=== PATIENT | female | born 1935 | race Caucasian/White ===

== ENCOUNTER → 2017-07-29 | Outpatient (CLI) | payer OTHER, MEDICARE, BC ==
--- NOTE | 2017-07-30 11:57 | MG ---
HISTORY: Annual surveillance, history of right breast carcinoma Comparison: July 29, 2016 FINDINGS: Bilateral CC and MLO projections of the right and left breast were obtained utilizing both full-field and push back techniques. Predominately fatty replaced fibroglandular tissue is seen to be present. Postoperative changes of the right breast are observed consistent with patient's history of right br east carcinoma. Otherwise, no significant architectural distortion, mass or clustered microcalcificat ions can be observed to suggest malignancy. No skin thickening or nipple retraction is appreciated. No pathological lymphadenopathy can be identified. Benign-appearing calcifications scattered throug hout the right and left breasts are observed. IMPRESSION: NO RADIOGRAPHIC EVIDENCE OF MALIGNANCY. ACR CATEGORY: 2 - benign findings. FOLLOW-UP EXAM 1 YEAR. Diagnostic CAD was utilized and reviewed. * 0 (ZERO) - ASSESSMENT INCOMPLETE; ADDITIONAL IMAGING IS NEEDED. * 1/1 (ONE) - NEGATIVE. * 2/II (TWO) - BENIGN FINDINGS. * 3/III (THREE) - PROBABLY BENIGN FINDING; SHORT INTERVAL FOLLOW-UP SUGGESTED. * 4/IV (FOUR) - SUSPICIOUS ABNORMALITY; BIOPSY SHOULD BE CONSIDERED. * 5/V - HIGHLY SUSPICIOUS OF MALIGNANCY; BIOPSY SHOULD BE PERFORMED. A NEGATIVE X-RAY REPORT SHOULD NOT DELAY BIOPSY IF A DOMINANT OR CLINICALLY SUSPICIOUS MASS IS PRESENT; 4 TO 8 PERCENT OF CANCERS ARE NOT IDENTIFIED BY X-RAY. A NEGA TIVE REPORT MAY REINFORCE THE CLINICAL IMPRESSION. ADENOSIS AND DENSE BREASTS MAY OBSCURE AN UNDERLY ING NEOPLASM. Reported By:
== END ==
LOC: RAD 09:21
PROVIDERS: ATTEND Specialist
DX: Z12.31 Encounter for screening mammogram for malignant neoplasm of breast (principal)
CPT/HCPCS: 77067

== ENCOUNTER → 2017-08-18 | Outpatient (CLI) | payer OTHER, MEDICARE, BC ==
--- NOTE | 2017-08-18 16:01 | MG ---
Examination: Unilateral right diagnostic mammogram and right breast ultrasound. Clinical history: Personal history of right breast carcinoma with right lumpectomy and subsequent rec onstructive right breast surgery with placement of a right breast prosthesis. The patient gives a his tory of a recent fall with tenderness and bruising to the right breast. Technique: Multiple digital images of the right breast were obtained. Targeted right breast ultrasoun d was also obtained evaluating the area of bruising from the 10 o'clock to 2 o'clock position. Comparison: 07/29/2017. Findings: The right breast is composed of scattered fibroglandular densities. There are stable postsurgical car nges from a right lumpectomy, with a stable partially calcified right breast prosthesis also noted. B enign-appearing calcifications are noted in the right breast. No suspicious mass, area of architectural distortion or suspicious cluster of microcalcifications is noted. Targeted right breast ultrasound evaluating the area of bruising in the superior portion of the right breast, reveals multiple small sub 5 mm circumscribed hypoechoic and anechoic masses seen at the 11 o'clock, 12 o'clock, 1 o'clock and 2 o'clock positions, likely representing small developing oil cyst s/fat necrosis or small complicated benign cysts. A followup right diagnostic mammogram and right carey ast ultrasound is recommended in 6 months to ensure stability of the findings. Impression: 1. Probably benign findings in the right breast, as described above. BI-RADS category 3/III (THREE) - PROBABLY BENIGN FINDING; SHORT INTERVAL FOLLOW-UP SUGGESTED. Recommend a followup right diagnostic mammogram and right breast ultrasound in 6 months to ensure sta bility of the findings in the right breast. Diagnostic CAD was utilized and reviewed. * 0 (ZERO) - ASSESSMENT INCOMPLETE; ADDITIONAL IMAGING IS NEEDED. * 0C - ASSESSMENT INCOMPLETE, NEEDS ADDITIONAL IMAGING EVALUATION AND/OR PRIOR MAMMOGRAMS FOR COMPARI SON. * 1/1 (ONE) - NEGATIVE. * 2/II (TWO) - BENIGN FINDINGS. * 3/III (THREE) - PROBABLY BENIGN FINDING; SHORT INTERVAL FOLLOW-UP SUGGESTED. * 4/IV (FOUR) - SUSPICIOUS ABNORMALITY; BIOPSY SHOULD BE CONSIDERED. * 5/V - HIGHLY SUSPICIOUS OF MALIGNANCY; BIOPSY SHOULD BE PERFORMED. * 6/ - KNOWN BIOPSY PROVEN MALIGNANCY-APPROPRIATE ACTION SHOULD BE TAKEN. A NEGATIVE X-RAY REPORT SHOULD NOT DELAY BIOPSY IF A DOMINANT OR CLINICALLY SUSPICIOUS MASS IS PRESENT; 4 TO 8 PERCENT OF CANCERS ARE NOT IDENTIFIED BY X-RAY. A NEGATIVE REPORT MAY REINFORCE THE CLINICAL IMPRESSION. ADENOSIS AND DENSE BREASTS MAY OBSCURE AN UNDERLYING NEOPLASM. Reported By:
== END | disposition home or self-care (01) ==
LOC: RAD 12:18
PROVIDERS: ATTEND Specialist
DX: N64.4 Mastodynia (principal); W19.XXXA Unspecified fall, initial encounter
CPT/HCPCS: 76642; 77065

== ENCOUNTER → 2018-02-09 | Outpatient (CLI) | payer OTHER, MEDICARE, BC ==
--- NOTE | 2018-02-12 10:27 | US ---
HISTORY: Six-month follow-up right breast nodules status post trauma with prior history of right carey ast carcinoma Right breast digital diagnostic mammography with CAD and right breast ultrasound. Comparison: July 2017 and June 2015 FINDINGS: Mammogram: CC and MLO projections of the right breast were obtained utilizing both full-field and pus h back techniques. Scattered fibroglandular tissue is seen to be present without suspicious interval change. No new or developing dominant architectural distortion, mass or clustered microcalcificatio ns can be observed to suggest malignancy. The patient has undergone previous lumpectomy with subglan dular silicone implant reconstruction with somewhat of an irregular contour and a calcified fibrous c apsule noted as well as adjacent hyperdense nodules which appear overall stable as compared to the mo st recent prior and which suggest the presence of fat necrosis/oil cyst formation as well as perhaps extracapsular rupture with silicone granuloma formation. No pathological lymphadenopathy can be keli ntified. Ultrasound: Multiple grayscale and color Doppler images of the superior right breast were obtained. S cattered from 11 to 2 o'clock 1-3 cm from the nipple, there are multiple rounded as well as horizonta lly oriented predominately anechoic cysts with posterior acoustical enhancement and no internal Doppl er flow the largest of which measures 6 mm located at 1 o'clock approximately 3 cm from the nipple an d which are most consistent with benign oil cysts. No suspicious cystic or solid nodules seen to jules ant biopsy at this time. IMPRESSION: Probably benign postsurgical and posttraumatic changes in the right breast with fat necr osis/oil cyst formation as well as possible extracapsular rupture with silicone granuloma formation a nd for which an additional six-month follow-up is recommended. The patient should undergo bilateral m ammographic imaging at that time. ACR CATEGORY 3 - probably benign finding; short interval follow-up suggested. Diagnostic CAD was utilized and reviewed. * 0 (ZERO) - ASSESSMENT INCOMPLETE; ADDITIONAL IMAGING IS NEEDED. * / (ONE) - NEGATIVE. * 2/II (TWO) - BENIGN FINDINGS. * 3/III (THREE) - PROBABLY BENIGN FINDING; SHORT INTERVAL FOLLOW-UP SUGGESTED. * 4/IV (FOUR) - SUSPICIOUS ABNORMALITY; BIOPSY SHOULD BE CONSIDERED. * 5/V - HIGHLY SUSPICIOUS OF MALIGNANCY; BIOPSY SHOULD BE PERFORMED. A NEGATIVE X-RAY REPORT SHOULD NOT DELAY BIOPSY IF A DOMINANT OR CLINICALLY SUSPICIOUS MASS IS PRESENT; 4 TO 8 PERCENT OF CANCERS ARE NOT IDENTIFIED BY X-RAY. A NEGA TIVE REPORT MAY REINFORCE THE CLINICAL IMPRESSION. ADENOSIS AND DENSE BREASTS MAY OBSCURE AN UNDERLY ING NEOPLASM. Reported By: Reported By:
== END ==
LOC: RAD 12:25
PROVIDERS: ATTEND Specialist
DX: R92.8 Other abnormal and inconclusive findings on diagnostic imaging of breast (principal)
CPT/HCPCS: 76642; 77065